=== PATIENT | male | born 1995 | race Caucasian/White ===

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

== ENCOUNTER 2023-04-28 14:55 | Inpatient (IN) ==
--- NOTE | 2023-04-28 15:06 | Emergency Department Note ---
Impression & Plan Depression with suicidal ideation ED Provider Note NAME: CURTIS PEDRO AGE: 28 SEX: M : 1995 ARRIVES VIA: Walk-In INFORMANT: Patient, ED PROVIDER(S): Augusto Edwards MD CHIEF COMPLAINT: Mental wellness concern MEDICAL DECISION MAKING: Patient presents due to concern for mental wellness concern. Blood work was obtained patient was to medically cleared seen and evaluated by psych family caseworker. Patient was accepted to 3 S. Discussion w/ other healthcare providers: None Prior /Outside records reviewed: None Differential diagnosis: Differentials Diagnostics, as interpreted by me: ECG: None Medical decision rules: Suicide risk severity score Imaging studies: None HPI: Patient presents due to concern for mental wellness concern. The patient has thought about "dying." Patient states that he does not have a specific plan was to harm himself. The patient states that he did recently move and does live with somebody and that prior "systems in place" he no longer has poor coping. Patient denies any alcohol tobacco or drug use. The patient currently does not take any medications on a regular basis. Patient states that he has been sleeping too much and that his appetite is poor. Patient states that if he really wanted to he could have access to a gun or weapon but he does not presently own one. Patient denies any HI or AVH. PAST MEDICAL HISTORY: See Below PAST SURGICAL HISTORY: See Below SOCIAL HISTORY: See Below HOME MEDICATIONS: See Below ALLERGIES: See Below VITALS: See Below PHYSICAL EXAMINATION: GENERAL: NAD, non-toxic. Wearing a hat and mask EYE EXAM: Normal conjunctiva. PERRL, no anisocoria and EOM's grossly intact w/o pain. NECK: Supple, no nuchal rigidity, no adenopathy, non-tender. No signs of meningismus. FROM of the neck with good chin to chest and neck extension. No stridor. LUNGS: Clear to auscultation. Normal chest wall mechanics. HEART: NSR, no MRG. ABDOMEN: Abdomen soft, non-tender, no masses, no rebound or guarding. BACK: No CVA TTP. SKIN: No rashes and no bruising. UPPER EXTREMITIES: Upper extremities are grossly normal. LOWER EXTREMITIES: Grossly normal, no edema. NEURO EXAM: A&O x3, cranial nerves II-XII grossly intact, normal speech, moves all 4 extremities. Psych: Flat affect, SI without plan, negative HI or AVH. Past Med/Surg History Medical History No chronic diseases present Surgical History No significant past surgical history Social History Smoking Status: Never smoker Preferred Language: Slovak Communication Ability: Effective Inventory Technician Required: No Beliefs That Will Affect Care: None Feels Safe at Home: Yes Gender Identity: Male Assistive Devices: None Allergies Allergies Allergy/AdvReac Type Severity Reaction Status Date / Time No Known Drug Allergies Allergy Unknown none Verified 09/24/18 01:25 Home Meds Home Medications Medication Instructions Recorded Confirmed No Known Home Medications 04/28/23 04/28/23 Results & Data (ED) Vital Signs Vital Signs - 24 hr 04/28/23 14:59 04/28/23 18:18 04/28/23 20:42 Temperature 36.9 C Temperature Source Temporal Artery Scan Pulse Rate 105 H 92 H Pulse Rate [Right Finger] 80 Respiratory Rate 19 20 18 Respiratory Effort / Characteristics Non-Labored Spontaneous Non-Labored Spontaneous Respiratory Depth Normal Normal Blood Pressure 163/88 H 136/82 Blood Pressure [Right Arm] 127/83 Blood Pressure Mean 113 Blood Pressure Mean [Right Arm] 97 Pulse Oximetry 99 97 99 Oxygen Delivery Method Room Air Room Air Room Air Sepsis Recent Fever Within 48 Hours No Sepsis New/Unexplained Change in Mental Status No Sepsis Action Taken by Nursing No Action Required Home Medications Current Medication List: was personally reviewed by me Laboratory Data Attestation: I reviewed the patient's lab results. 04/28/23 16:19 04/28/23 16:19 Lab Results 04/28/23 04/28/23 Range/Units 15:18 16:19 WBC 7.41 (4.8-10.8) K/ul RBC 5.09 (4.70-6.10) M/uL Hgb 16.1 (14.0-18.0) g/dl Hct 46.3 (42.0-52.0) % MCV 91.0 (80.0-100.0) fL MCH 31.6 (25.0-34.0) pg MCHC 34.8 (32.0-36.0) g/dL RDW Std Deviation 38.7 (36.4-46.3) fL RDW Coeff of James 11.6 (11.5-14.5) % Plt Count 269 (130-400) K/uL MPV 10.1 (9.4-12.4) fL Immature Gran % (Auto) 0.4 % Neut % (Auto) 70.4 % Lymph % (Auto) 19.6 % [place] % (Auto) 8.4 % Eos % (Auto) 0.8 % Baso % (Auto) 0.4 % Neut # (Auto) 5.22 (1.40-6.50) K/uL Lymph # (Auto) 1.45 (1.20-3.40) K/uL [place] # (Auto) 0.62 H (0.11-0.59) K/uL Eos # (Auto) 0.06 (0.00-0.50) K/uL Baso # (Auto) 0.03 (0.00-0.20) K/uL Immature Gran # (Auto) 0.03 (0.01-0.20) K/uL Sodium 139 (136-145) mmol/L Potassium 3.5 (3.5-5.1) mmol/L Chloride 105 (98-107) mmol/L Carbon Dioxide 27 (21-32) mmol/L Anion Gap 7 (3-11) BUN 13 (6-23) mg/dl Creatinine 0.92 (0.6-1.4) mg/dl Est Cr Clr Drug Dosing 129.6 ml/min Est GFR ( Amer) 132.6 ml/min Est GFR (Non-Af Amer) 114.4 ml/min BUN/Creatinine Ratio 14.1 (10-20) Glucose 104 H (70-99(Fasting)) mg/dl Calcium 9.8 (8.6-10.3) mg/dl Total Bilirubin 0.7 (0.2-1.0) mg/dl AST 16 (13-39) U/L ALT 14 (7-52) U/L Alkaline Phosphatase 56 (34-104) U/L Total Protein 7.4 (6.0-8.3) gm/dl Albumin 4.7 (3.4-5.0) gm/dl Globulin 2.7 (2.5-4.0) gm/dl Albumin/Globulin Ratio 1.7 (0.9-2) TSH 0.957 (0.300-4.500) uIu/ml Urine Color Dark Yellow Urine Appearance Clear (Clear) Urine pH 6.0 (4.5-7.5) Ur Specific [place] 1.028 (1.000-1.030) Urine Protein Negative (Negative) Urine Glucose (UA) Negative (Negative) Urine Ketones Trace H (Negative) Urine Blood Negative (Negative) Urine Nitrite Negative (Negative) Urine Bilirubin Negative (Negative) Urine Urobilinogen Negative (Negative) Ur Leukocyte Esterase Negative (Negative) Salicylates < 3.0 L (3.0-30) mg/dl Urine Opiates Screen Neg (Neg) Ur Methadone, Qual Neg (Neg) Acetaminophen < 3 L (10-30) ug/ml Urine Barbiturates Neg (Neg) Ur Phencyclidine (PCP) Neg (Neg) U Amphetamin/Meth Scrn Neg (Neg) MDMA (Ecstasy) Screen Neg (Neg) U Benzodiazepines Scrn Neg (Neg) Ur Cocaine Metabolite Neg (Neg) U Marijuana (THC) Screen Neg (Neg) Ethyl Alcohol mg/dL < 10.0 (<10.0) mg/dl SARS-CoV-2, RNA, NAAT NEGATIVE (NEGATIVE) Discharge Plan Visit Data Chief Complaint: Mental Health Evaluation Stated Complaint: MENTAL HEALTH EVAL ED Provider: Augusto Edwards Discharge Problem: Depression with suicidal ideation Patient Disposition: Admitted As Inpatient Discharge Instructions Interventions: ED Discharge Assessment Last Done: 04/28/23 20:42
[2023-04-28 16:12] LABS: Appearance Urine Clear (Clear); Bilirubin Urine Negative (Negative); Blood Urine Negative (Negative); Color Urine Dark Yellow; Glucose Urine UA Negative (Negative); Ketones Urine Trace (Negative); Leukocyte Esterase Urine Negative (Negative); Nitrite Urine Negative (Negative); Protein Urine Negative (Negative); Specific Gravity Urine 1.028 (1.000-1.030); Urobilinogen Urine Negative (Negative)
[2023-04-28 16:45] LABS: Amphetamines+Metham, Urine Neg (Neg); Barbiturates, Urine Neg (Neg); Benzodiazepine, Urine Neg (Neg); Cocaine, Urine Neg (Neg); MDMA (Ecstacy), Urine Neg (Neg); Marijuana, Urine Neg (Neg); Methadone, Urine Neg (Neg); Opiate, Urine Neg (Neg); Phencyclidine, Urine Neg (Neg)
[2023-04-28 17:06] LABS: Basophils # (auto) 0.03 K/uL (0.00-0.20); Basophils % (auto) 0.4 %; Eosinophils # (auto) 0.06 K/uL (0.00-0.50); Eosinophils % (auto) 0.8 %; Hematocrit (blood only) 46.3 % (42.0-52.0); Hemoglobin 16.1 g/dl (14.0-18.0); Immature Granulocytes # (auto) 0.03 K/uL (0.01-0.20); Immature Granulocytes % (auto) 0.4 %; Lymphocytes # (auto) 1.45 K/uL (1.20-3.40); Lymphocytes % (auto) 19.6 %; Mean Corpuscular Hemoglobin 31.6 pg (25.0-34.0); Mean Corpuscular Hgb Conc 34.8 g/dL (32.0-36.0); Mean Platelet Volume 10.1 fL (9.4-12.4); Monocytes # (auto) 0.62 K/uL (0.11-0.59); Monocytes % (auto) 8.4 %; Neutrophils # (auto) 5.22 K/uL (1.40-6.50); Neutrophils % (auto) 70.4 %; Platelet Count 269 K/uL (130-400); RDW Coefficient of Variation 11.6 % (11.5-14.5); RDW Standard Deviation 38.7 fL (36.4-46.3); Red Blood Count 5.09 M/uL (4.70-6.10); White Blood Count 7.41 K/ul (4.8-10.8)
[2023-04-28 17:17] LABS: Acetaminophen < 3 ug/ml (10-30); Salicylate < 3.0 mg/dl (3.0-30)
[2023-04-28 17:20] LABS: Albumin Globulin Ratio 1.7 (0.9-2); Albumin Level 4.7 gm/dl (3.4-5.0); BUN Creatinine Ratio 14.1 (10-20); Bilirubin,Total 0.7 mg/dl (0.2-1.0); Calcium 9.8 mg/dl (8.6-10.3); Creatinine Clr Calc Pharmacy 129.6 ml/min; Est GFR (African American) 132.6 ml/min; Est GFR (Non-African American) 114.4 ml/min; Globulin 2.7 gm/dl (2.5-4.0); Potassium 3.5 mmol/L (3.5-5.1); Total Protein 7.4 gm/dl (6.0-8.3)
[2023-04-28 17:35] LABS: Thyroid Stimulating Hormone 0.957 uIu/ml (0.300-4.500)
[2023-04-28] MEDS ORDERED: BISMUTH SUBSALICYLATE LIQD 236 ML PO PRN (22:00)
[2023-04-28] MEDS ORDERED: ACETAMINOPHEN 325 MG TAB PO PRN (22:00)
[2023-04-28] MEDS ORDERED: hydrOXYzine HCl 25 MG TAB PO PRN ×2 (22:00)
[2023-04-28] MEDS ORDERED: SODIUM CHLORIDE 0.65% NA SOLN 45 ML (OCEAN) PRN (22:00)
[2023-04-28] MEDS ORDERED: MAGNESIUM HYDROXIDE SUSP 30 ML UDC PO PRN (22:00)
[2023-04-28] MEDS ORDERED: ALUMINUM/MAGNESIUM SUSP 30 ML UDC PO PRN (22:00)
--- NOTE | 2023-04-29 12:59 | History & Physical ---
Date of Service April 29, 2023 Impression / Recommendations Impression 28 yo male with hx of suicide attempt as teen, family history of schizoaffective disorder, presented with vegetatitve symptoms of depression and SI in the context of marked psychosocial stressors (financial, housing) and likely complex trauma hx. Overall, I spent a total of 55 minutes with this case, including review of chart, direct evaluation of the patient, counseling the patient, coordination with nursing and social work, risk assessment, and documentation. (1) Depression with suicidal ideation: Plan The patient was admitted to the [facility] ([facility] mental [facility] unit) on q15 min checks (behavioral with suicide precautions) for safety. The patient will participate in group, recreational, and milieu therapies and will be offered additional individual and family sessions as clinically appropriate. Briefly discussed risks/benefits/alternatives re: trial of an SSRI, he'd prefer to avoid at this time but was aware that Vistaril is available prn. Inventory Assets Strengths: verbal, help seeking Needs: improve coping and community supports Suicide Risk Level Suicide Risk Level: High-Moderate (q15 min suicide checks) Risk Factors Assessment Male: Yes Do You Have Access To A Gun?: No Mental Health Diagnoses: Yes Substance Use Disorders: No Previous Attempt: Yes Previous Psychiatric Hospitalization: No Protective Factors Assessment : No Employed: Yes ([employer]) Stable Relationships: Yes Psychiatric History Identifying Data CHANCE WILLIS is a 28-year-old M is a guest in [facility], has no formal psych hx, and was admitted on 04/28/23 20:58 on a 201 voluntary commitment for SI/overwhelm. Chief Complaint "I just need help". History of Present Illness Reviewed history as documented by ED CM with patient: Met with patient and Dr. Edwards for a brief MH evaluation. Patient reports SI, but states he has longer periods of SI when he is disassociating. Patient denies a plan. He reports fee ling depressed, but is not on any medication. Patient states he could not get out of bed or Sunday, but that he feels "fine overall" today. Patient reports his mother and brother have been diagnosed with bipolar/schizoaffective disorder. Patient states he just moved and this has been a stressor for him as he has no "systems" in place. Patient reports living with a roommate. He does not have any guns/weapons in his home, but states he could get access to a weapon if he wanted to. Patient was very guarded. He was very careful about what he said and what information he was forthcoming with. Patient states he thinks about dying often. He reports he feels safe with his current living arrangements, but is not sure what he would do if he was in the "right situation" in regards to killing himself. Patient denies psychosis. Today, the patient reports his life "fell apart" in September when he had to leave the place he was staying with his maternal half-brothers and their father. 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 He refers to himself as bankrupt as he ran out of money and believes he owes the [employer] money on a rather large agriculture loan from a terrell program. 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 He tends to sleep alot to avoid dealing with painful thoughts and emotions and by "systems" he means schedule. He feels guilty for not being more productive but other than going to work and spending time with his dog he's not particularly motivated. He denied a specific plan for self harm but did tell a separate CM he had thoughts could get a gun and admitted to a suicide attempt at age 17 by hanging. He denied manic symptoms other than disinhibited when intoxicated and added that he only used the term manic as that was the term used in the question. Although he did not elaborate on his trauma history or formally endorse PTSD symptoms he did allude to exposure to unsafe conditions for his mother. He denied dissociative experiences and used the term "disassociated" to his tendency to withdraw and shut down when stressed. Past Psychiatric History Previous Psych History: none Outpatient Services: none Previous Psych Admissions: none Do You Have Access To A Gun?: No History of Previous Suicide Attempt: Yes Describe Attempts in the Past: 17 yo, hanging Past Medication Trials: none, would prefer to avoid medication Allergies Allergy/AdvReac Type Severity Reaction Status Date / Time No Known Drug Allergies Allergy Unknown none Verified 09/24/18 01:25 Home Medications Medication Instructions Recorded Confirmed Type No Known Home Medications 04/28/23 04/28/23 History Family History Family History of: Other Mood Disorders Family Mental Health History Comment: mom, brother- "Bipolar" schizoaffective disorder, brother is unstable "in and out of psych wards" Alcohol History Hx of Alcohol Use Over the Past 12 Months: No AUDIT Total Score: 0 Smoking Use Have You Smoked or Used Tobacco Products in the Last 30 Days: No Smoking Status: Never smoker Substance History Hx of Prescription Med Misuse Over the Past 12 Months: No Hx of Over the Counter Med Misuse Over the Past 12 Months: No Hx of Inhalent Misuse Over the Past 12 Months: No Hx of Organic Substance Use Over the Past 12 Months: No Hx of Illegal Substances/Street Drug Use Over Past 12 Months: No Problems as a Result of Past Substance Use: None Identified Personal History Living Arrangements: Homeless Living Arrangements Comments: staying at mita's niece in [address] [place] [id number] Childhood: product of father's 3rd marriage, various sibs from both sides, bio father and patient born and raised near [place] [facility] in [place]. Highest Grade Completed: Did Not Graduate High School (9th grade) Marital Status: Single Number Of Children: 0 Beliefs That Will Affect Care: None Hx Legal Problems: No Psychological Trauma History Comment: yes but not elucidated Patient History Medical History No chronic diseases present Surgical History No significant past surgical history Social History Smoking Status: Never smoker Preferred Language: Haitian Communication Ability: Effective Loader Malt House Required: No Beliefs That Will Affect Care: None Feels Safe at Home: Yes Gender Identity: Male Assistive Devices: None Review of Systems Review of Systems: All systems reviewed & are unremarkable except as noted in HPI & below Physical Exam Psychiatric: Orientation: alert and oriented x 3 Apperance: appropriately dressed and appropriately groomed Eye Contact: good eye contact Motor Behavior: no abnormal motor movements Speech: normal rate/rhythm/volume of speech Affect: + depressed affect Mood: + depressed mood Thought Process: goal directed thought process Thought Content: reality based without delusions Suicidal Thoughts: denies suicidal plan (on unit) and denies suicidal intent; + reports suicidal thoughts Homicidal Thoughts: denies homicidal thoughts Hallucinations: no auditory hallucinations and no visual hallucinations Cognition: attention grossly intact and language grossly intact Estimated Intelligence: consistent with education level Insight: + limited insight Judgment: + limited judgement Vital Signs (Past 24 Hours): Last Vital Signs Temp 36.4 C 04/29/23 06:20 Pulse 77 04/29/23 06:20 Resp 18 04/29/23 06:20 BP 104/71 04/29/23 06:20 Pulse Ox 98 04/29/23 06:20 O2 Del Method Room Air 04/29/23 06:20 Exam Statement: A physical exam was performed in the ED by Dr. Rondon for the purposes of medical clearance. I accept that physical as correct and adequate for the purposes of the inpatient physical exam. Results & Data ([facility]) Laboratory Results Laboratory Results - last 24 hr 04/28/23 04/28/23 15:18 16:19 WBC 7.41 RBC 5.09 Hgb 16.1 Hct 46.3 MCV 91.0 MCH 31.6 MCHC 34.8 RDW Std Deviation 38.7 RDW Coeff of James 11.6 Plt Count 269 MPV 10.1 Immature Gran % (Auto) 0.4 Neut % (Auto) 70.4 Lymph % (Auto) 19.6 [place] % (Auto) 8.4 Eos % (Auto) 0.8 Baso % (Auto) 0.4 Neut # (Auto) 5.22 Lymph # (Auto) 1.45 [place] # (Auto) 0.62 H Eos # (Auto) 0.06 Baso # (Auto) 0.03 Immature Gran # (Auto) 0.03 Sodium 139 Potassium 3.5 Chloride 105 Carbon Dioxide 27 Anion Gap 7 BUN 13 Creatinine 0.92 Est Cr Clr Drug Dosing 129.6 Est GFR ( Amer) 132.6 Est GFR (Non-Af Amer) 114.4 BUN/Creatinine Ratio 14.1 Glucose 104 H Calcium 9.8 Total Bilirubin 0.7 AST 16 ALT 14 Alkaline Phosphatase 56 Total Protein 7.4 Albumin 4.7 Globulin 2.7 Albumin/Globulin Ratio 1.7 TSH 0.957 Urine Color Dark Yellow Urine Appearance Clear Urine pH 6.0 Ur Specific [place] 1.028 Urine Protein Negative Urine Glucose (UA) Negative Urine Ketones Trace H Urine Blood Negative Urine Nitrite Negative Urine Bilirubin Negative Urine Urobilinogen Negative Ur Leukocyte Esterase Negative Salicylates < 3.0 L Urine Opiates Screen Neg Ur Methadone, Qual Neg Acetaminophen < 3 L Urine Barbiturates Neg Ur Phencyclidine (PCP) Neg U Amphetamin/Meth Scrn Neg MDMA (Ecstasy) Screen Neg U Benzodiazepines Scrn Neg Ur Cocaine Metabolite Neg U Marijuana (THC) Screen Neg Ethyl Alcohol mg/dL < 10.0 SARS-CoV-2, RNA, NAAT NEGATIVE Current Inpatient Medications Current Inpatient Medications: Current Inpatient Medications Acetaminophen (Acetaminophen 325 Mg Tab) 650 mg PO Q4H PRN PRN Reason: Headache or Minor Fever Stop: 05/28/23 21:59 Al Hydrox/Mg Hydrox/Simethicone (Aluminum/Magnesium Susp 30 Ml Udc) 30 ml PO Q4H PRN PRN Reason: GI Upset Stop: 05/28/23 21:59 Bismuth Subsalicylate (Bismuth Subsalicylate Liqd 236 Ml) 15 ml PO PRN PRN PRN Reason: Loose Stool Stop: 05/28/23 21:59 Hydroxyzine HCl (Hydroxyzine Hcl 25 Mg Tab) 50 mg PO HSZ PRN PRN Reason: Insomnia Stop: 05/28/23 21:59 Hydroxyzine HCl (Hydroxyzine Hcl 25 Mg Tab) 25 mg PO Q4H PRN PRN Reason: Anxiety Stop: 05/28/23 21:59 Magnesium Hydroxide (Magnesium Hydroxide Susp 30 Ml Udc) 30 ml PO DAILY PRN PRN Reason: Constipation Stop: 05/28/23 21:59 Sodium Chloride (Sodium Chloride 0.65% Na Soln 45 Ml ([place])) 1 - 2 sprays NA PRN PRN PRN Reason: Nasal Dryness/Congestion Stop: 05/28/23 21:59
--- NOTE | 2023-04-30 13:17 | Psychiatric Progress Note ---
Date of Service April 30, 2023 Impression / Recommendations Impression 28 yo male with hx of suicide attempt as teen, family history of schizoaffective disorder, presented with vegetatitve symptoms of depression and SI in the context of marked psychosocial stressors (financial, housing) and likely complex trauma hx. Overall, I spent a total of 36 minutes with this case, including review of chart, direct evaluation of the patient, counseling the patient, interdisciplinary treatment team, and documentation. (1) Depression with suicidal ideation: Plan 04/30/23: continue current prns and tx plan. 04/29/23: The patient was admitted to the [facility] ([facility] mental health unit) on q15 min checks (behavioral with suicide precautions) for safety. The patient will participate in group, recreational, and milieu therapies and will be offered additional individual and family sessions as clinically appropriate. Briefly discussed risks/benefits/alternatives re: trial of an SSRI, he'd prefer to avoid at this time but was aware that Vistaril is available prn. Inventory Assets Strengths: verbal, help seeking Needs: improve coping and community supports Suicide Risk Level Suicide Risk Level: High-Moderate (q15 min suicide checks) Risk Factors Assessment Male: Yes Do You Have Access To A Gun?: No Mental Health Diagnoses: Yes Substance Use Disorders: No Previous Attempt: Yes Previous Psychiatric Hospitalization: No Protective Factors Assessment : No Employed: Yes ([employer]) Stable Relationships: Yes Interval History Identifying Information CURTIS PEDRO is a 28-year-old M is a guest in [facility], has no formal psych hx, and was admitted on 04/28/23 20:58 on a 201 voluntary commitment for SI/overwhelm. Chief Complaint "feel support, anyone I was talking to didn't seem to be the best person to talk to." Review of Systems Sleep Information Total Hours of Sleep: 5.5 Meal Information Percent Meal Consumed - Breakfast: 100 Percent Meal Consumed - Lunch: 90 Percent Meal Consumed - Dinner: 100 Subjective Subjective Patient was seen & assessed and interval progress reviewed with treatment team. No acute concerns. Denies SI last pm. Overwhelmed with thoughts about his dogs, living situation, finances. Did not require prns, aware available. Physical Exam Psychiatric Orientation: alert and oriented x 3 Apperance: appropriately dressed and appropriately groomed Eye Contact: good eye contact Motor Behavior: no abnormal motor movements Speech: normal rate/rhythm/volume of speech Affect: + depressed affect Mood: + depressed mood Thought Process: goal directed thought process Thought Content: reality based without delusions Suicidal Thoughts: denies suicidal thoughts, denies suicidal plan and denies suicidal intent Homicidal Thoughts: denies homicidal thoughts Hallucinations: no auditory hallucinations and no visual hallucinations Cognition: attention grossly intact and language grossly intact Estimated Intelligence: consistent with education level Insight: + limited insight Judgment: + limited judgement Vital Signs (Past 24 Hours) Last Vital Signs Temp 36.2 C L 04/30/23 06:00 Pulse 91 H 04/30/23 06:10 Resp 16 04/30/23 06:00 BP 112/77 04/30/23 06:10 Pulse Ox 98 04/29/23 06:20 O2 Del Method Room Air 04/29/23 06:20 Results & Data ([facility]) Current Inpatient Medications Current Inpatient Medications: Current Inpatient Medications Acetaminophen (Acetaminophen 325 Mg Tab) 650 mg PO Q4H PRN PRN Reason: Headache or Minor Fever Stop: 05/28/23 21:59 Al Hydrox/Mg Hydrox/Simethicone (Aluminum/Magnesium Susp 30 Ml Udc) 30 ml PO Q4H PRN PRN Reason: GI Upset Stop: 05/28/23 21:59 Bismuth Subsalicylate (Bismuth Subsalicylate Liqd 236 Ml) 15 ml PO PRN PRN PRN Reason: Loose Stool Stop: 05/28/23 21:59 Hydroxyzine HCl (Hydroxyzine Hcl 25 Mg Tab) 50 mg PO HSZ PRN PRN Reason: Insomnia Stop: 05/28/23 21:59 Hydroxyzine HCl (Hydroxyzine Hcl 25 Mg Tab) 25 mg PO Q4H PRN PRN Reason: Anxiety Stop: 05/28/23 21:59 Magnesium Hydroxide (Magnesium Hydroxide Susp 30 Ml Udc) 30 ml PO DAILY PRN PRN Reason: Constipation Stop: 05/28/23 21:59 Sodium Chloride (Sodium Chloride 0.65% Na Soln 45 Ml ([place])) 1 - 2 sprays NA PRN PRN PRN Reason: Nasal Dryness/Congestion Stop: 05/28/23 21:59 Mental Health & Subst Abuse Tx Therapist [facility] Date of Therapist Appointment: 05/02/2023 Time of Therapist Appointment: 9AM Therapy Appointment Comment: [address] [place] [address] Seater Grinder Name of Seater Grinder: Mackenzie Griffith Phone Number for Seater Grinder: [phone] Date of Appointment with Seater Grinder: 05/02/23 Time of Appointment with Seater Grinder: 9AM Case Management Appointment Comment: [address] [place] [address] Post Discharge Appointments Primary Care Physician Name Of Family Doctor/PCP: Mackenzie Griffith Primary Care Date of Future Appointment with PCP: 05/02/2023 Time of Appointment with PCP: 9AM Provider Appointment Comment: [address] [place] [address]
--- NOTE | 2023-05-01 10:56 | Discharge Summary ---
Date of Service May 01, 2023 History of Present Illness Reviewed history as documented by ED CM with patient: Met with patient and Dr. Edwards for a brief MH evaluation. Patient reports SI, but states he has longer periods of SI when he is disassociating. Patient denies a plan. He reports feeling depressed, but is not on any medication. Patient states he could not get out of bed or Sunday, but that he feels "fine overall" today. Patient reports his mother and brother have been diagnosed with bipolar/schizoaffective disorder. Patient states he just moved and this has been a stressor for him as he has no "systems" in place. Patient reports living with a roommate. He does not have any guns/weapons in his home, but states he could get access to a weapon if he wanted to. Patient was very guarded. He was very careful about what he said and what information he was forthcoming with. Patient states he thinks about dying often. He reports he feels safe with his current living arrangements, but is not sure what he would do if he was in the "right situation" in regards to killing himself. Patient denies psychosis. Today, the patient reports his life "fell apart" in September when he had to leave the place he was staying with his maternal half-brothers and their father. 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 He refers to himself as bankrupt as he ran out of money and believes he owes [employer] money on a rather large agriculture loan from a terrell program. 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 He tends to sleep alot to avoid dealing with painful thoughts and emotions and by "systems" he means schedule. He feels guilty for not being more productive but other than going to work and spending time with his dog he's not particularly motivated. He denied a specific plan for self harm but did tell a separate CM he had thoughts could get a gun and admitted to a suicide attempt at age 17 by hanging. He denied manic symptoms other than disinhibited when intoxicated and added that he only used the term manic as that was the term used in the question. Although he did not elaborate on his trauma history or formally endorse PTSD symptoms he did allude to exposure to unsafe conditions for his mother. He denied dissociative experiences and used the term "disassociated" to his tendency to withdraw and shut down when stressed. Physical Exam Psychiatric See admission H&P and DOD assessment. Vital Signs (Past 24 Hours) Last Vital Signs Temp 36.3 C L 05/01/23 09:13 Pulse 75 05/01/23 09:13 Resp 16 05/01/23 09:13 BP 133/80 05/01/23 09:13 Pulse Ox 98 05/01/23 09:13 O2 Del Method Room Air 04/29/23 06:20 Principal Diagnosis major depressive disorder Psychiatric Data See daily stay summary. In short, safety was maintained and the patient was cooperative with care. He declined medication trials and understood that info on his discharge instructions referred to future meds. He preferred to await insurance coverage and therapy to ensure need and ability to take consistently. A family session was held with a friend, otherwise he was hesitant to involve family in his care for collateral; a safety plan was completed prior to discharge. Day of Discharge Assessment Today the patient voices readiness for discharge. They note improvement in mood and deny thoughts to harm self or others. Thoughts remain organized and they are improved from admission. There is no evidence of psychosis. They agree to keep follow-up appointments. They are stable for discharge to outpatient level of care. Transition of Care Transition Of Care Record: was reviewed with the patient Advance Directives Advance Directives Information Provided: Yes Advance Directives: No Mental Health Advance Directive: No Advance Directives on File: No Living Will: No Power of Mill Operator Helper: No Advance Directives Reason:: Declines as Mental Health Visit. Risk Factors Assessment Male: Yes Do You Have Access To A Gun?: No Mental Health Diagnoses: Yes Substance Use Disorders: No Previous Attempt: Yes Previous Psychiatric Hospitalization: No Protective Factors Assessment : No Employed: Yes ([employer]) Stable Relationships: Yes Tobacco Cessation at Discharge Tobacco Cessation Medication Prescribed at Discharge: Not Applicable/Non-Smoker Total Time Total Time Spent: Less Than 30 Minutes (22 minutes) Total Time Includes: Examination of the patient, Discharge Planning and Medication Reconciliation Discharge Data Lab Results 04/28/23 04/28/23 15:18 16:19 WBC 7.41 RBC 5.09 Hgb 16.1 Hct 46.3 MCV 91.0 MCH 31.6 MCHC 34.8 RDW Std Deviation 38.7 RDW Coeff of James 11.6 Plt Count 269 MPV 10.1 Immature Gran % (Auto) 0.4 Neut % (Auto) 70.4 Lymph % (Auto) 19.6 [place] % (Auto) 8.4 Eos % (Auto) 0.8 Baso % (Auto) 0.4 Neut # (Auto) 5.22 Lymph # (Auto) 1.45 [place] # (Auto) 0.62 H Eos # (Auto) 0.06 Baso # (Auto) 0.03 Immature Gran # (Auto) 0.03 Sodium 139 Potassium 3.5 Chloride 105 Carbon Dioxide 27 Anion Gap 7 BUN 13 Creatinine 0.92 Est Cr Clr Drug Dosing 129.6 Est GFR ( Amer) 132.6 Est GFR (Non-Af Amer) 114.4 BUN/Creatinine Ratio 14.1 Glucose 104 H Calcium 9.8 Total Bilirubin 0.7 AST 16 ALT 14 Alkaline Phosphatase 56 Total Protein 7.4 Albumin 4.7 Globulin 2.7 Albumin/Globulin Ratio 1.7 TSH 0.957 Urine Color Dark Yellow Urine Appearance Clear Urine pH 6.0 Ur Specific [place] 1.028 Urine Protein Negative Urine Glucose (UA) Negative Urine Ketones Trace H Urine Blood Negative Urine Nitrite Negative Urine Bilirubin Negative Urine Urobilinogen Negative Ur Leukocyte Esterase Negative Salicylates < 3.0 L Urine Opiates Screen Neg Ur Methadone, Qual Neg Acetaminophen < 3 L Urine Barbiturates Neg Ur Phencyclidine (PCP) Neg U Amphetamin/Meth Scrn Neg MDMA (Ecstasy) Screen Neg U Benzodiazepines Scrn Neg Ur Cocaine Metabolite Neg U Marijuana (THC) Screen Neg Ethyl Alcohol mg/dL < 10.0 SARS-CoV-2, RNA, NAAT NEGATIVE Hospital Course (1) Depression with suicidal ideation: Plan 04/30/23: continue current prns and tx plan. 04/29/23: The patient was admitted to the [facility] ([facility] mental health unit) on q15 min checks (behavioral with suicide precautions) for safety. The patient will participate in group, recreational, and milieu therapies and will be offered additional individual and family sessions as clinically appropriate. Briefly discussed risks/benefits/alternatives re: trial of an SSRI, he'd prefer to avoid at this time but was aware that Vistaril is available prn. Mental Health & Subst Abuse Tx Therapist Name of Therapist: [facility]- appointment for eligibility Therapist's Date of Therapist Appointment: 05/02/2023 Time of Therapist Appointment: 9AM Therapy Appointment Comment: [address] [place] [address] Crop Setting Out Machine Operator Name of Crop Setting Out Machine Operator: Dennis Yuenimei in [facility]-appointment for eligibility Phone Number for Crop Setting Out Machine Operator: [phone] Date of Appointment with Crop Setting Out Machine Operator: 05/02/23 Time of Appointment with Crop Setting Out Machine Operator: 9AM Case Management Appointment Comment: [address] [place] [address] Post Discharge Appointments Primary Care Physician Name Of Family Doctor/PCP: Dennis Yuenimei in [facility]- appointment for eligibility Primary Care Date of Future Appointment with PCP: 05/02/2023 Time of Appointment with PCP: 9AM Provider Appointment Comment: [address] [place] [address] Primary Care Release of Information: Obtained, Reviewed and Signed Smoking Cessation Counseling Tobacco Cessation Medication Prescribed at Discharge: Not Applicable/Non-Smoker Contact Information Discharge Discharge Address: [place], [place] (friend's home) Discharge Plan Discharge Items Patient Disposition: Home - Self-Care Reason For Visit: MAJOR DEPRESSIVE DISORDER Discharge Diagnosis: major depressive disorder Activity: Resume your previous activity Non-emergency contact: Primary Care Provider, Psychiatrist and Therapist Call non-emergency contact if: you have any medication questions and your symptoms worsen Follow-up/Referrals: PCP,NO [Primary Care Provider] - Diet: Regular Addtl Attending Provider Instructions: SPECIAL CARE INSTRUCTIONS: 1. Follow through with your scheduled aftercare appointments. If unable to keep an appointment, please call to reschedule. 2. Take your medication only as prescribed. Medication should not be changed or stopped without the approval of your doctor. In the event of worsening symptoms or concerns about side effects, contact your doctor immediately. 3. Utilize new healthy coping skills, anger management skills, and stress management skills learned during your hospitalization. Journal feelings and process them with a support person. Identify stressors or situations that may result in relapse, deterioration or inappropriate behaviors and develop a plan to deal with those issues. 4. If your coping skills are ineffective and you are in crisis, contact your outpatient providers for direction. If unable to reach your providers, please call the [facility] CRISIS LINE AT , go to the [facility] walk-in center at [address], [address], [place], or go to the closest Emergency Room. 5. Avoid alcohol and un-prescribed drugs. 6. You have been provided with the Mental Health Advance Directives Pamphlet for your review. 7. Your condition is stable for discharge to outpatient level of care, but recovery is an ongoing process. Ifthoughts to harm yourself or others return, follow the safety plan developed during your stay. Planning for a safe return home includes securing weapons. Our treatment team recommends weaponsbe removed from the home until your outpatient provider reassesses your progress. In rare cases where the items themselvescannot be removed, guns and ammunitionshould be secured separatelyand keys stored by a reliable personoutside of the home. If you were admitted on an involuntary commitment, the police or other legal authorities may be involved in this process. AFTERCARE APPOINTMENTS: * Please call your insurance company prior to your scheduled appointment to confirm your aftercare providers are covered. Take your insurance information to your appointments. WHO TO CALL AND WHEN: Medical Emergencies: For questions or emergencies related to your hospital stay, please contact the Inpatient Behavioral Health Unit at [phone]. A enamel finisher is on-call 06/11 for the Behavioral Health Unit for emergencies At any time you feel your situation is an emergency, you may also call 911 immediately. Pending Studies at Discharge: No Stand-Alone Forms: My [facility], Smoking Cessation Medications and DC Order Discharge Orders: Discharge Order (Routine); Ordered 05/01/23 Ordered By: Luz Rahman Admission Data Admit Date/Time: 04/28/23 20:58 Attending Provider: Luz Rahman Admit Provider: Luz Rahman Primary Care Provider: PCP,NO Other Interventions: Discharge Summary Assessment (RN) Last Done: 05/01/23 09:13 PSY Interdisciplinary Discharge Planning Last Done: 05/01/23 09:22 Coding Level of Care Code 80569 D/C day mgmt 30 min or < Diagnoses Depression with suicidal ideation F32.A; R45.851
== END 2023-05-01 09:51 | disposition home or self-care (01) | DRG 881 ==
LOC: ED 14:55 → 3S 20:42